=== PATIENT | female | born 1995 | race Hispanic/Latino ===

== ENCOUNTER 2024-05-27 18:54 | Emergency (ER) | payer OTHER, SELFPAY ==
[2024-05-27] MEDS ORDERED: Acetaminophen 500 MG TAB ONE (20:03)
[2024-05-27 20:04] LABS: Bilirubin Neg (Negative); Blood, Urine 250 (Negative); Glucose, Urine (Dipstick) Normal (Negative); Ketone, Urine Negative (Negative); Leukocyte 100 (Negative); Nitrite Negative (Negative); Protein, Urine (Dipstick) 15 mg/dl (Neg-Trace); Specific Gravity, Urine 1.015 (1.005-1.030); Urobilinogen Normal mg/dL (Less than 2)
[2024-05-27 20:05] LABS: Clarity Hazy (Clear)
[2024-05-27 20:25] LABS: #Basophils 0.03 10x3/uL (0.0-0.2); #Eosinophils 0.09 10x3/uL (0.0-0.5); #Monocytes 0.56 10x3/uL (0.0-1.1); #Neutrophils 6.58 10x3/uL (1.5-8.4); %Basophils 0.3 % (0.0-2.0); %Eosinophils 0.9 % (0.0-6.0); %Lymphocytes 23.8 % (18.0-47.0); %Monocytes 5.9 % (0.0-10.0); %Neutrophils 68.8 % (40.0-75.0); Hematocrit 36.6 % (34.9-44.5); Hemoglobin 13.1 g/dL (12.0-15.5); Mean Corpuscular HGB CONC 35.8 g/dL (32.0-36.0); Mean Corpuscular Hemoglobin 30.1 pg (27.0-33.0); Mean Corpuscular Volume 84.1 fL (81.6-98.3); Mean Platelet Volume 10.5 fL (7.4-10.4); Platelet Count 236 10x3/uL (150-450); RBC Distribution Width 12.2 % (11.5-14.5); Red Blood Cell (RBC) Count 4.35 10x6/uL (3.90-5.03); White Blood Cell (WBC) Count 9.57 10x3/uL (3.5-10.5)
[2024-05-27 20:41] LABS: ALT (SGPT) 17 U/L (8-55); AST (SGOT) 17 U/L (5-34); Albumin 3.7 g/dL (3.5-5.0); Alkaline Phosphatase 59 U/L (40-110); Anion Gap 13 mmol/L (10-20); BUN (Urea Nitrogen) 9 mg/dL (7.0-18.7); Bilirubin, Total 0.5 mg/dL (0.2-1.2); Calc. Creatinine Clearance 0 mL/min (70-130); Calcium 9.1 mg/dL (7.8-10.44); Carbon Dioxide 21 mmol/L (22-29); Chloride 106 mmol/L (98-107); Estimated GFR 124; Globulin 3.7 g/dL (2.4-3.5); Glucose 89 mg/dL (70-105); Lipase 24 U/L (8-78); Magnesium 1.8 mg/dL (1.6-2.6); Potassium 4.1 mmol/L (3.5-5.1); Protein, Total 7.4 g/dL (6.0-8.3); Sodium 136 mmol/L (136-145)
[2024-05-27 20:43] LABS: Bacteria/HPF 2+ HPF (None Seen); CAUTI Indications for Culture Pelvic or flank pain; Transitional Epithelial 0-3 HPF (None Seen)
[2024-05-27 20:44] LABS: Urine Culture Reflex No No
== END 2024-05-27 23:40 | disposition home or self-care (01) ==
LOC: CSHERS 18:54
DX: O20.8 Other hemorrhage in early pregnancy (principal); O23.41 Unspecified infection of urinary tract in pregnancy, first trimester; N39.0 Urinary tract infection, site not specified; Z3A.01 Less than 8 weeks gestation of pregnancy
CPT/HCPCS: 36415; 76856; 80053; 81001; 83690; 83735; 84702; 85025; 86850; 86900; 86901

== ENCOUNTER 2024-12-23 19:00 | Inpatient (IN) | payer MEDICAID, OTHER, SELFPAY ==
[2024-12-23] MEDS ORDERED: Methylergonovine 0.2 MG/ML VIAL IM PRN (22:00)
[2024-12-23] MEDS ORDERED: Ondansetron PF 4 MG/2 ML Vial IVP PRN (22:00)
[2024-12-23] MEDS ORDERED: Ibuprofen 800 MG TAB PO PRN (22:00)
[2024-12-23] MEDS ORDERED: Oxytocin 30 units/NS 500 ML 500 ML IV SCH ×2 (22:00)
[2024-12-23] MEDS ORDERED: Diphenoxylate HCl/Atropine Tablet PO PRN (22:00)
[2024-12-23] MEDS ORDERED: HYDROcodone/Acetaminophen 5/325 mg Tablet PO PRN (22:00)
[2024-12-23] MEDS ORDERED: Tranexamic Acid 1,000 MG/10 ML VIAL IVP PRN (22:00)
[2024-12-23] MEDS ORDERED: Lidocaine 1% (PF) 30 ML VIAL SC PRN (22:00)
[2024-12-23] MEDS ORDERED: Carboprost 250 MCG/ML AMP IM PRN (22:00)
[2024-12-23] MEDS ORDERED: Acetaminophen 500 MG TAB PO PRN (22:00)
[2024-12-23] MEDS ORDERED: hydrALAZINE 20 MG/ML VIAL SLOW IVP PRN (22:00)
[2024-12-23 22:02] VITALS: BMI 30.2
[2024-12-23 22:54] LABS: Hematocrit 36.3 % (34.9-44.5); Hemoglobin 12.8 g/dL (12.0-15.5); Mean Corpuscular Hemoglobin 31.9 pg (27.0-33.0); Mean Corpuscular Volume 90.5 fL (81.6-98.3); Platelet Count 138 10x3/uL (150-450); Red Blood Cell (RBC) Count 4.01 10x6/uL (3.90-5.03); White Blood Cell (WBC) Count 6.23 10x3/uL (3.5-10.5)
[2024-12-23 23:34] LABS: Hep B Surf Ag - L&D Non-Reactive S/CO (NonReactive)
[2024-12-23 23:38] LABS: Syphilis Antibody Index 0.07 S/CO (<1.00 Non-Reactive)
[2024-12-24] MEDS: Oxytocin 30 units/NS 500 ML 500 ML IV SCH (05:51)
[2024-12-24] MEDS: fentaNYL/Ropivacaine Epidural 100 ML ONE (09:02)
[2024-12-24] MEDS ORDERED: Acetaminophen 325 MG TAB PO PRN (09:31)
[2024-12-24] MEDS ORDERED: Ondansetron PF 4 MG/2 ML Vial IVP PRN ×2 (09:31→14:12)
[2024-12-24] MEDS ORDERED: diphenhydrAMINE 50 MG/ML VIAL IVP PRN (09:31)
[2024-12-24] MEDS ORDERED: fentaNYL 2 mcg/Ropivacaine 0.2% Epidural 100 ML CADD EPIDURAL SCH (09:45)
[2024-12-24] MEDS ORDERED: Bisacodyl 10 MG SUPP PR PRN (14:12)
[2024-12-24] MEDS ORDERED: diphenhydrAMINE 25 MG CAP PO PRN (14:12)
[2024-12-24] MEDS ORDERED: HYDROcodone/Acetaminophen 5/325 mg Tablet PO PRN ×2 (14:12→14:41)
[2024-12-24] MEDS ORDERED: hydrALAZINE 20 MG/ML VIAL SLOW IVP PRN (14:12)
[2024-12-24] MEDS ORDERED: Boostrix 0.5 ML (Tdap) VIAL (>/=7 yrs of age) IM ONE (14:12)
[2024-12-24] MEDS ORDERED: Milk Of Magnesia 30 ML UDCUP PO PRN (14:12)
[2024-12-24] MEDS ORDERED: Benzocaine-Menthol 82.5 ML CAN TOP PRN (14:12)
[2024-12-24] MEDS ORDERED: Lanolin Ointment 7 GM TUBE TOP PRN (14:12)
[2024-12-24] MEDS: Ibuprofen 800 MG TAB PO SCH ×2 (15:14→21:18)
[2024-12-24] MEDS: Ferrous Sulfate 325 MG TAB PO SCH (15:15)
[2024-12-25] MEDS ORDERED: HYDROcodone/Acetaminophen 5/325 mg Tablet PO PRN (09:36)
[2024-12-25 12:34] VITALS: BP 85/53; TEMP 98.5
== END 2024-12-25 18:10 | disposition home or self-care (01) | DRG 807 ==
LOC: CSHLD 21:31 → CSHPP 12-24 13:30
PROVIDERS: ADMIT Family Medicine; ATTEND Family Medicine
PROC: 10E0XZZ Delivery of Products of Conception, External Approach (ICD-10-PCS; principal; 2024-12-24)
PROC: 10907ZC Drainage of Amniotic Fluid, Therapeutic from Products of Conception, Via Natural or Artificial Opening (ICD-10-PCS; 2024-12-24)
PROC: 3E033VJ Introduction of Other Hormone into Peripheral Vein, Percutaneous Approach (ICD-10-PCS; 2024-12-24)
PROC: 0UQMXZZ Repair Vulva, External Approach (ICD-10-PCS; 2024-12-24)
DX: O24.429 Gestational diabetes mellitus in childbirth, unspecified control (principal); Z37.0 Single live birth; Z3A.39 39 weeks gestation of pregnancy; O71.82 Other specified trauma to perineum and vulva
CPT/HCPCS: 36415; 85027; 86780; 86850; 86900; 86901; 87340; J2590; J7120